=== PATIENT | female | born 1960 | race Caucasian/White ===

== ENCOUNTER 2017-07-09 03:29 | Emergency (ER) | payer OTHER ==
[~2017-07-09] VITALS: Ht 157.5 cm; Wt 56.0 kg
[2017-07-09 03:34] VITALS: BP 192/83; PULSE 87; RESP 16; TEMP 98.1; O2SAT 98
--- NOTE | 2017-07-09 03:58 | PD ---
HPI Chief Complaint: Alcohol/Drug Intoxication Time Seen by Provider: 03:32 Travel History International Travel<30 days: No Contact w/Intl Traveler<30days: No Traveled to known affect area: No History of Present Illness HPI 57-year-old white female presents emergency department under [place] act by PD. The patient stated that she was depressed and tired of drinking alcohol. She was concerned that she may be overdosing on alcohol. Patient tells me that she has been feeling gradually more depressed over the last several weeks to months. She had moved in with her father after her mother . She is tired of taking care of him. She has a large amount of resentment towards her father and mother. She states that she was kicked out of the house at age 16 when she was . She was forced to give the child up for adoption according to her. Since then she has never been again. She is single and unemployed. 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 Patient states that she would like not to be here any longer. She states that she is not suicidal but does not want to live anymore. She denies any plan on self-harm. No homicidal ideation. She does note that she would like her father to . She is tired of taking care of them. She states that he has some mild dementia and urinary incontinence. He tends to fall asleep all over the house and urinates and defecates on himself. He does wear a diaper. She is tired of cleaning up after him. Over the last several months she has started drinking on a daily basis. She actually states that she saw her doctor (Francisco Velasquez) earlier today due to uncontrolled hypertension. She was taken off her calcium channel luciano and placed on a beta-luciano for blood pressure. She was noted to have tachycardia. [facility] Past Medical History Narrative Medical ADD, anxiety, depression Tetanus Vaccination: < 5 Years ?: Not LMP: Current : 1 Para: 1 Miscarriage: 0 : 0 Past Surgical History Surgical History: No Previous Surgery Social History Alcohol Use: Yes Tobacco Use: No Substance Use: No Allergies-Medications (Allergen,Severity, Reaction): Coded Allergies: No Known Allergies (Unverified , 07/09/17) Reported Meds & Prescriptions Reported Meds & Active Scripts Active Reported Diovan (Valsartan) 160 Mg Tab 160 Mg PO BID Klonopin (Clonazepam) 1 Mg Tab 1 Mg PO QID Adderall (Amphetamine-Dextroamphetamine) 30 Mg Tab 30 Mg PO DAILY Avoid late evening doses. Space doses at least 4 to 6 hours if more than once/day dosing. Abilify (Aripiprazole) 10 Mg Tab 10 Mg PO DAILY Prozac (Fluoxetine HCl) 40 Mg Cap 40 Mg PO DAILY Review of Systems General / Constitutional: No: Fever Eyes: No: Visual changes HENT: No: Headaches Cardiovascular: No: Chest Pain or Discomfort Respiratory: Positive: Cough, Shortness of Breath Gastrointestinal: Positive: Nausea, Loss of Appetite, No: Abdominal Pain, Hematochezia Genitourinary: No: Dysuria Musculoskeletal: No: Pain Skin: No Rash Neurologic: No: Weakness Psychiatric: Positive: Anxiety, Depression, Suicidal Ideations, Mood Disorder, Substance Abuse, No: Disorder of Thought, Homicidal Ideation Endocrine: No: Polydipsia Hematologic/Lymphatic: No: Easy Bruising Physical Exam Narrative GENERAL: Well-nourished, well-developed patient. Smells of EtOH appears intoxicated. SKIN: Warm and dry. HEAD: Normocephalic and atraumatic. EYES: No scleral icterus. No injection or drainage. ENT: No nasal drainage noted. Mucous membranes pink. Airway patent. NECK: Supple, trachea midline. Moves head freely without obvious discomfort. CARDIOVASCULAR: Regular rate and rhythm without murmurs, gallops, or rubs. RESPIRATORY: Breath sounds equal bilaterally. No accessory muscle use. GASTROINTESTINAL: Abdomen soft, non-tender, nondistended. EXTREMITIES: No cyanosis or edema. BACK: Nontender without obvious deformity. No CVA tenderness. NEURO: Patient is alert and oriented. no sensorimotor deficits. Ataxic gait.. Slurred speech. PSYCH: No delusions. No auditory or visual hallucinations. Data Data Last Documented VS Vital Signs Date Time Temp Pulse Resp B/P (MAP) Pulse Ox O2 Delivery O2 Flow Rate FiO2 07/09/17 04:12 87 16 07/09/17 04:03 98.1 192/83 (119) 98 07/09/17 03:34 Room Air Orders Orders Complete Blood Count With Diff (07/09/17 03:47) Comprehensive Metabolic Panel (07/09/17 03:47) Thyroid Stimulating Hormone (07/09/17 03:47) Psych Screen (07/09/17 03:47) Drug Screen, Random Urine (07/09/17 03:47) Alcohol (Ethanol) (07/09/17 03:47) Metoprolol Tartrate (Lopressor) (07/09/17 04:00) Labs Laboratory Tests Test 07/09/17 04:05 White Blood Count 15.1 TH/MM3 Red Blood Count 4.65 MIL/MM3 Hemoglobin 15.1 GM/DL Hematocrit 43.8 % Mean Corpuscular Volume 94.3 FL Mean Corpuscular Hemoglobin 32.5 PG Mean Corpuscular Hemoglobin Concent 34.5 % Red Cell Distribution Width 13.7 % Platelet Count 282 TH/MM3 Mean Platelet Volume 7.7 FL Neutrophils (%) (Auto) 52.9 % Lymphocytes (%) (Auto) 40.1 % Monocytes (%) (Auto) 6.2 % Eosinophils (%) (Auto) 0.4 % Basophils (%) (Auto) 0.4 % Neutrophils # (Auto) 8.0 TH/MM3 Lymphocytes # (Auto) 6.0 TH/MM3 Monocytes # (Auto) 0.9 TH/MM3 Eosinophils # (Auto) 0.1 TH/MM3 Basophils # (Auto) 0.1 TH/MM3 CBC Comment AUTO DIFF Differential Total Cells Counted 100 Neutrophils % (Manual) 50 % Band Neutrophils % 1 % Lymphocytes % 44 % Monocytes % 4 % Neutrophils # (Manual) 7.9 TH/MM3 Metamyelocytes 1 % Differential Comment FINAL DIFF MANUAL Platelet Estimate NORMAL Platelet Morphology Comment NORMAL Red Cell Morphology Comment NORMAL Blood Urea Nitrogen 14 MG/DL Creatinine 0.76 MG/DL Random Glucose 107 MG/DL Total Protein 7.4 GM/DL Albumin 3.3 GM/DL Calcium Level 7.8 MG/DL Alkaline Phosphatase 86 U/L Aspartate Amino Transf (AST/SGOT) 62 U/L Alanine Aminotransferase (ALT/SGPT) 43 U/L Total Bilirubin 0.2 MG/DL Sodium Level 140 MEQ/L Potassium Level 4.2 MEQ/L Chloride Level 108 MEQ/L Carbon Dioxide Level 22.4 MEQ/L Anion Gap 10 MEQ/L Estimat Glomerular Filtration Rate 79 ML/MIN Thyroid Stimulating Hormone 3rd Gen 5.510 uIU/ML Urine Opiates Screen NEG Urine Barbiturates Screen POS Urine Amphetamines Screen NEG Urine Benzodiazepines Screen NEG Urine Cocaine Screen NEG Urine Cannabinoids Screen NEG Ethyl Alcohol Level 217 MG/DL MDM Medical Decision Making Medical Screen Exam Complete: Yes Emergency Medical Condition: Yes Medical Record Reviewed: Yes Interpretation(s) Laboratory Tests Test 07/09/17 04:05 White Blood Count 15.1 TH/MM3 Red Blood Count 4.65 MIL/MM3 Hemoglobin 15.1 GM/DL Hematocrit 43.8 % Mean Corpuscular Volume 94.3 FL Mean Corpuscular Hemoglobin 32.5 PG Mean Corpuscular Hemoglobin Concent 34.5 % Red Cell Distribution Width 13.7 % Platelet Count 282 TH/MM3 Mean Platelet Volume 7.7 FL Neutrophils (%) (Auto) 52.9 % Lymphocytes (%) (Auto) 40.1 % Monocytes (%) (Auto) 6.2 % Eosinophils (%) (Auto) 0.4 % Basophils (%) (Auto) 0.4 % Neutrophils # (Auto) 8.0 TH/MM3 Lymphocytes # (Auto) 6.0 TH/MM3 Monocytes # (Auto) 0.9 TH/MM3 Eosinophils # (Auto) 0.1 TH/MM3 Basophils # (Auto) 0.1 TH/MM3 CBC Comment AUTO DIFF Differential Total Cells Counted 100 Neutrophils % (Manual) 50 % Band Neutrophils % 1 % Lymphocytes % 44 % Monocytes % 4 % Neutrophils # (Manual) 7.9 TH/MM3 Metamyelocytes 1 % Differential Comment FINAL DIFF MANUAL Platelet Estimate NORMAL Platelet Morphology Comment NORMAL Red Cell Morphology Comment NORMAL Blood Urea Nitrogen 14 MG/DL Creatinine 0.76 MG/DL Random Glucose 107 MG/DL Total Protein 7.4 GM/DL Albumin 3.3 GM/DL Calcium Level 7.8 MG/DL Alkaline Phosphatase 86 U/L Aspartate Amino Transf (AST/SGOT) 62 U/L Alanine Aminotransferase (ALT/SGPT) 43 U/L Total Bilirubin 0.2 MG/DL Sodium Level 140 MEQ/L Potassium Level 4.2 MEQ/L Chloride Level 108 MEQ/L Carbon Dioxide Level 22.4 MEQ/L Anion Gap 10 MEQ/L Estimat Glomerular Filtration Rate 79 ML/MIN Thyroid Stimulating Hormone 3rd Gen 5.510 uIU/ML Urine Opiates Screen NEG Urine Barbiturates Screen POS Urine Amphetamines Screen NEG Urine Benzodiazepines Screen NEG Urine Cocaine Screen NEG Urine Cannabinoids Screen NEG Ethyl Alcohol Level 217 MG/DL Differential Diagnosis MDM: High Differential diagnoses: Schizophrenia, schizoaffective disorder, bipolar, anxiety, depression, adjustment reaction, mood disorder NOS, ODD, depressive disorder NOS, dementia, dementia with agitation, psychosis NOS, substance induced mood disorder, DMDD, Asperger syndrome, infection,electrolyte abnormality, malingering. Narrative Course Mental health screening discussed with the patient. Psychiatric screen ordered. The patient here is under a [place] act by PD. The patient does report feeling increasingly depressed and having suicidal thoughts. Once the patient doris up she will be evaluated by the psych screener. This is alcohol intoxication, alcohol induced mood disorder Diagnosis Primary Impression: Alcohol intoxication Additional Impression: Alcohol-induced mood disorder Patient Instructions: General Instructions Condition: Stable Reji Saucedo Jul 09, 2017 03:58
[2017-07-09] MEDS ORDERED: METOPROLOL TARTRATE 50 MG TAB PO ONE (04:00)
[2017-07-09 04:03] VITALS: BP 192/83; PULSE 87; RESP 16; TEMP 98.1; O2SAT 98
[2017-07-09] MEDS ORDERED: PROZ40CA PO (04:11)
[2017-07-09] MEDS ORDERED: ABIL10TA8 PO (04:11)
[2017-07-09] MEDS ORDERED: CLON1 PO (04:11)
[2017-07-09] MEDS ORDERED: ADDE30TA PO (04:11)
[2017-07-09] MEDS ORDERED: DIOV160T6 PO (04:11)
[2017-07-09 04:22] LABS: BASOPHIL # 0.1 TH/MM3 (0-0.2); BASOPHIL % 0.4 % (0.0-2.0); EOSINOPHIL # 0.1 TH/MM3 (0-0.4); EOSINOPHIL % 0.4 % (0.0-4.0); HEMATOCRIT 43.8 % (35.0-46.0); HEMOGLOBIN 15.1 GM/DL (11.6-15.3); LYMPH % 40.1 % (9.0-44.0); MEAN CELL VOLUME 94.3 FL (80.0-100.0); MEAN CORPUSCULAR HEMOGLOBIN 32.5 PG (27.0-34.0); MEAN CORPUSCULAR HGB CONC 34.5 % (32.0-36.0); MEAN PLATELET VOLUME 7.7 FL (7.0-11.0); MONO % 6.2 % (0.0-8.0); MONOCYTE # 0.9 TH/MM3 (0-0.9); NEUT % 52.9 % (16.0-70.0); PLATELET COUNT 282 TH/MM3 (150-450); RED BLOOD COUNT 4.65 MIL/MM3 (4.00-5.30); RED CELL DISTRIBUTION WIDTH 13.7 % (11.6-17.2); WHITE BLOOD COUNT 15.1 TH/MM3 (4.0-11.0)
[2017-07-09 04:43] LABS: ALBUMIN 3.3 GM/DL (3.4-5.0); ALT (GPT) 43 U/L (10-53); AST (GOT) 62 U/L (15-37); BICARBONATE 22.4 MEQ/L (21.0-32.0); BLOOD UREA NITROGEN 14 MG/DL (7-18); CALCIUM 7.8 MG/DL (8.5-10.1); CHLORIDE 108 MEQ/L (98-107); CREATININE 0.76 MG/DL (0.50-1.00); GLOMERULAR FILTRATION RATE 79 ML/MIN (>89); GLUCOSE,RANDOM 107 MG/DL (74-106); SODIUM (NA) 140 MEQ/L (136-145)
[2017-07-09 04:52] LABS: ALKALINE PHOSPHATASE 86 U/L (45-117); TOTAL BILIRUBIN ADULT 0.2 MG/DL (0.2-1.0); TOTAL PROTEIN 7.4 GM/DL (6.4-8.2)
[2017-07-09 04:59] LABS: BANDS 1 % (0-6); LYMPHOCYTES 44 % (9-44); METAMYELOCYTES 1 % (0-1); MONOCYTES 4 % (0-8); NEUTROPHIL # MANUAL DIFF 7.9 TH/MM3 (1.8-7.7); POLYS (SEG NEUTROPHILS) 50 % (16-70)
--- NOTE | 2017-07-09 09:39 | PD ---
Physical Exam Narrative The patient is sober at this time. I reevaluated the patient and she denies suicidal or homicidal ideations. She denies having a plan. She says she is ready to go home. She says she was intoxicated and made the statements last night because she was drunk. Data Data Last Documented VS Vital Signs Date Time Temp Pulse Resp B/P (MAP) Pulse Ox O2 Delivery O2 Flow Rate FiO2 07/09/17 04:12 87 16 07/09/17 04:03 98.1 192/83 (119) 98 07/09/17 03:34 Room Air Orders Orders Complete Blood Count With Diff (07/09/17 03:47) Comprehensive Metabolic Panel (07/09/17 03:47) Thyroid Stimulating Hormone (07/09/17 03:47) Psych Screen (07/09/17 03:47) Drug Screen, Random Urine (07/09/17 03:47) Alcohol (Ethanol) (07/09/17 03:47) Metoprolol Tartrate (Lopressor) (07/09/17 04:00) Diet Regular Basic (07/09/17 Breakfast) Labs Laboratory Tests Test 07/09/17 04:05 White Blood Count 15.1 TH/MM3 Red Blood Count 4.65 MIL/MM3 Hemoglobin 15.1 GM/DL Hematocrit 43.8 % Mean Corpuscular Volume 94.3 FL Mean Corpuscular Hemoglobin 32.5 PG Mean Corpuscular Hemoglobin Concent 34.5 % Red Cell Distribution Width 13.7 % Platelet Count 282 TH/MM3 Mean Platelet Volume 7.7 FL Neutrophils (%) (Auto) 52.9 % Lymphocytes (%) (Auto) 40.1 % Monocytes (%) (Auto) 6.2 % Eosinophils (%) (Auto) 0.4 % Basophils (%) (Auto) 0.4 % Neutrophils # (Auto) 8.0 TH/MM3 Lymphocytes # (Auto) 6.0 TH/MM3 Monocytes # (Auto) 0.9 TH/MM3 Eosinophils # (Auto) 0.1 TH/MM3 Basophils # (Auto) 0.1 TH/MM3 CBC Comment AUTO DIFF Differential Total Cells Counted 100 Neutrophils % (Manual) 50 % Band Neutrophils % 1 % Lymphocytes % 44 % Monocytes % 4 % Neutrophils # (Manual) 7.9 TH/MM3 Metamyelocytes 1 % Differential Comment FINAL DIFF MANUAL Platelet Estimate NORMAL Platelet Morphology Comment NORMAL Red Cell Morphology Comment NORMAL Blood Urea Nitrogen 14 MG/DL Creatinine 0.76 MG/DL Random Glucose 107 MG/DL Total Protein 7.4 GM/DL Albumin 3.3 GM/DL Calcium Level 7.8 MG/DL Alkaline Phosphatase 86 U/L Aspartate Amino Transf (AST/SGOT) 62 U/L Alanine Aminotransferase (ALT/SGPT) 43 U/L Total Bilirubin 0.2 MG/DL Sodium Level 140 MEQ/L Potassium Level 4.2 MEQ/L Chloride Level 108 MEQ/L Carbon Dioxide Level 22.4 MEQ/L Anion Gap 10 MEQ/L Estimat Glomerular Filtration Rate 79 ML/MIN Thyroid Stimulating Hormone 3rd Gen 5.510 uIU/ML Urine Opiates Screen NEG Urine Barbiturates Screen POS Urine Amphetamines Screen NEG Urine Benzodiazepines Screen NEG Urine Cocaine Screen NEG Urine Cannabinoids Screen NEG Ethyl Alcohol Level 217 MG/DL MDM Supervised Visit with [facility]: No Narrative Course The patient is sober at this time. I reevaluated the patient and she denies suicidal or homicidal ideations. She denies having a plan. She says she is ready to go home. She says she was intoxicated and made the statements last night because she was drunk. I do not feel the patient is a threat to herself or others and the patient is cleared for discharge. Psychiatric screen canceled. Patient contracts safety. Denies suicidal or homicidal ideations. Has friends and family for support. Patient was medically cleared by alternate provider prior to psych screening. Diagnosis Primary Impression: Alcohol intoxication Additional Impression: Alcohol-induced mood disorder Referrals: Francisco Velasquez MD (PCP) call for appointment ACT (Out patient) [facility] Primary Care Physician Psychiatrist [facility] Patient Instructions: Abuse of Alcohol (ED), Alcohol Dependence (ED), Alcohol Intoxication (ED), General Instructions Departure Forms: Tests/Procedures Additional Instruction: Contract safety to your self and others Stop drinking alcohol Follow-up in the community for community support, such as Alcoholics Anonymous Follow-up with psychiatry Follow-up with primary care provider Follow-up with [facility] Return to the emergency department immediately with worsening of symptoms Med/Other Pt SpecificInfo: No Change to Meds, No Meds Exist/No RX given Disposition: 01 DISCHARGE HOME Condition: Stable Melanie Mcguire Jul 09, 2017 09:39
== END 2017-07-09 09:55 | disposition home or self-care (01) ==
LOC: NEPD 03:29 → NEPB 09:55
DX: F10.129 Alcohol abuse with intoxication, unspecified (principal); F10.14 Alcohol abuse with alcohol-induced mood disorder; I10 Essential (primary) hypertension; F32.9 Major depressive disorder, single episode, unspecified; Y90.7 Blood alcohol level of 200-239 mg/100 ml; Z79.899 Other long term (current) drug therapy
CPT/HCPCS: 80053; 80307; 84443; 85007; 85027; 99283